=== PATIENT | female | born 1995 | race Caucasian/White ===

== ENCOUNTER 2017-12-23 11:26 | Emergency (ER) | payer MEDICAID ==
[~2017-12-23] VITALS: Ht 160 cm; Wt 59.1 kg
[~2017-12-23 11:26] MED LIST: ONDA8TAB9 PO; PHEN-786 PO
[2017-12-23 12:26] VITALS: BP 125/74
[2017-12-23] MEDS ORDERED: NITR100C6 PO (12:37)
[2017-12-23 13:02] LABS: CLARITY,URINE CLEAR (Clear); GLUCOSE, URINE NEGATIVE (Neg); KETONES,URINE NEGATIVE (Neg); LEUKOCYTE ESTERASE ,URINE MODERATE (Neg); NITRITES, URINE POSITIVE (Neg); OCCULT BLOOD,URINE TRACE-LYSED (Neg); PROTEIN,URINE NEGATIVE (Neg); UA COLLECTION TYPE CLN CATCH MIDSTREAM; URINE HCG POSITIVE (NEG)
[2017-12-23 13:15] LABS: COLOR,URINE DARK YELLOW (Yellow)
[2017-12-23 13:17] LABS: BACTERIA,URINE FEW /HPF (Neg); RBC,URINE 0-2 /HPF (0-2); SQUAMOUS EPITHELIAL CELL,UR FEW /LPF (FEW); WBC CLUMPS,URINE FEW /HPF (NEGATIVE); WBC,URINE 30-50 /HPF (0-4)
== END 2017-12-23 13:06 | disposition home or self-care (01) ==
LOC: ER 11:26
DX: O23.41 Unspecified infection of urinary tract in pregnancy, first trimester (principal); Z79.899 Other long term (current) drug therapy; Z3A.01 Less than 8 weeks gestation of pregnancy
CPT/HCPCS: 81001; 81025; 87088; 99284

== ENCOUNTER 2022-02-11 05:16 | Emergency (ER) | payer MEDICAID ==
[~2022-02-11] VITALS: Ht 160 cm; Wt 57.7 kg
[~2022-02-11 05:16] MED LIST changes: +NITR100C6 PO
[2022-02-11 05:23] VITALS: BP 112/62
== END 2022-02-11 05:47 | disposition home or self-care (01) ==
LOC: ER 05:17
DX: S00.81XA Abrasion of other part of head, initial encounter (principal); Z56.0 Unemployment, unspecified; V49.9XXA Car occupant (driver) (passenger) injured in unspecified traffic accident, initial encounter; Y93.89 Activity, other specified; Y92.89 Other specified places as the place of occurrence of the external cause; Y99.8 Other external cause status
CPT/HCPCS: 99283